=== PATIENT | male | born 1965 | race Caucasian/White ===

== ENCOUNTER 2021-07-14 12:59 | Observation (INO) | payer OTHER, SELFPAY ==
[2021-07-14] VITALS (11 sets, daily range): BP systolic 149–168; BP diastolic 65–86; PULSE 72–85; RESP 14–24; TEMP 36–36.9; O2SAT 96–100; BMI 38.6; BMI 39.5
--- NOTE | 2021-07-14 13:19 | DI.RAD.S_ITS ---
PROCEDURE: XR CHEST 1V INDICATIONS: chest pain TECHNIQUE: One view of the chest was acquired. COMPARISON: None. FINDINGS: Surgical changes and devices: Surgical clips in the left neck. Lungs and pleura: Lungs are clear. No pleural effusions or pneumothorax. Mediastinum: Mediastinal contours appear normal. Heart size is mildly increased. Bones and chest wall: No suspicious bony lesions. Overlying soft tissues appear unremarkable. IMPRESSION: Mild cardiomegaly. Dictated by: Hellen Meng M.D. on 07/14/2021 at 14:12 Approved by: Hellen Meng M.D. on 07/14/2021 at 14:12
[2021-07-14 13:41] LABS: Prothrombin Time 10.6 SECONDS (10.1-12.7)
[2021-07-14 13:44] LABS: Add Manual Diff / Slide Review NO; Basophils Absolute Auto 100 /uL (0-100); Basophils Percent Auto 0.6 % (0-2); Eosinophils Absolute Auto 100 /uL (0-450); Eosinophils Percent Auto 1.7 % (2-4); Hematocrit 33.8 % (41-53); Hemoglobin 11.2 g/dL (13.5-17.5); Lymphocytes Absolute Auto 1600 /uL (1100-4500); Lymphocytes Percent Auto 19.4 % (25-40); Mean Corpuscular HGB Conc 33.1 % (30-36); Mean Corpuscular Hemoglobin 28.9 PG (26-34); Mean Corpuscular Volume 87.1 fL (80-100); Monocytes Absolute Auto 400 /uL (0-900); Monocytes Percent Auto 5.1 % (3-14); Neutrophils Absolute Auto 6000 /uL (1500-7000); Neutrophils Percent Auto 73.2 % (50-75); PTT Partial Thromboplastin Tim 38 SECONDS (26.4-36.2); Platelet Count 273 X10^3/uL (150-400); Red Blood Cell Count 3.88 X10^6/uL (4.5-5.9); Red Cell Distribution Width 14.6 % (11.6-14.8); White Blood Cell Count 8.2 X10^3/uL (4.5-11.0)
[2021-07-14 13:46] LABS: Alanine Aminotransferase 36 IU/L (<50); Albumin 4.5 g/dL (3.5-5.0); Albumin Globulin Ratio 1.2 (1.0-2.8); Alkaline Phosphatase 124 U/L (38-126); Aspartate Aminotransferase 31 IU/L (17-59); BUN Creatinine Ratio 14.3 (6-22); Bilirubin Total 0.3 mg/dL (0.2-1.3); Blood Urea Nitrogen 15 mg/dL (9-20); Calcium 10.2 mg/dL (8.4-10.2); Carbon Dioxide 29 mmol/L (22-32); Chloride 103 mmol/L (98-107); Creatine Kinase 92 U/L (55-170); Estimated Glomerular Filt Rate > 60.0 mL/min (>60); Globulin 3.7 g/dL (1.7-4.1); Glucose 133 mg/dL (70-100); HEMOLYSIS < 15 (0-50); Lipase 171 U/L (23-300); Magnesium 1.7 mg/dL (1.6-2.3); Potassium 5.3 mmol/L (3.4-5.1); Sodium 139 mmol/L (137-145); Total Protein 8.2 g/dL (6.3-8.2)
[2021-07-14 13:57] LABS: Troponin I 0.014 ng/mL (0.01-0.034)
--- NOTE | 2021-07-14 15:13 | ED.DIZZY ---
HPI - Dizziness <Cleveland Perez PA-C - Last Filed: 07/14/21 17:30> General Chief Complaint: Dizziness Stated Complaint: Dizzy, stumbling, got a stint put in heart 07/06 Time Seen by Provider: 07/14/21 13:23 Source: patient Mode of arrival: Wheelchair History of Present Illness HPI Narrative: 56-year-old male presents to the ED complaining of sudden onset of dizziness that started this morning when he woke up out of bed. Patient reports that while getting out of bed walking to the bathroom he had extreme episodes of dizziness denies any loss of consciousness. Patient reports that he had a cardiac stent placed last week. He was placed on blood pressure medication and a blood thinner of unknown. Patient denies any headache nausea diarrhea fever sore throat congestion. Patient admits while driving over here he became car sick momentarily he had 1 episode of vomiting as result. No illicit drug use or recent trauma reported. Related Data Home Medications Medication Instructions Recorded Confirmed aspirin 81 mg tablet,delayed 81 mg PO BEDTIME 07/14/21 07/14/21 release atorvastatin 80 mg tablet 80 mg PO DAILY 07/14/21 07/14/21 carvedilol 3.125 mg tablet 3.125 mg PO BID 07/14/21 07/14/21 citalopram 20 mg tablet (Celexa) 20 mg PO DAILY 07/14/21 07/14/21 cyclobenzaprine 10 mg tablet 10 mg PO BEDTIME 07/14/21 07/14/21 ergocalciferol (vitamin D2) 1,250 1,250 mcg PO WEEKLY 07/14/21 07/14/21 mcg (50,000 unit) capsule losartan 25 mg tablet 12.5 mg PO DAILY 07/14/21 07/14/21 metformin 500 mg tablet 500 mg PO BID 07/14/21 07/14/21 prasugrel 10 mg tablet 10 mg PO DAILY 07/14/21 07/14/21 sildenafil 100 mg tablet 100 mg PO PRN PRN 07/14/21 07/14/21 trazodone 100 mg tablet 100 mg PO BEDTIME 07/14/21 07/14/21 zinc sulfate 50 mg zinc (220 mg) 50 mg PO BEDTIME 07/14/21 07/14/21 capsule Allergies Allergy/AdvReac Type Severity Reaction Status Date / Time No Known Drug Allergies Allergy Verified 07/14/21 13:14 Review of Systems <Cleveland Perez PA-C - Last Filed: 07/14/21 17:30> Review of Systems ROS Unobtainable: All systems reviewed & are unremarkable except as noted in HPI and below Constitutional Constitutional: Denies chills, Denies fatigue, Denies fever(s), Denies frequent falls, Denies lethargy and Denies weakness Eyes Eyes: Denies change in vision, Denies eye discharge, Denies irritation and Denies loss of vision ENT Ears, Nose, Mouth, and Throat: Denies change in voice, Reports vertigo, Reports dizziness, Denies neck pain, Denies sore throat and Denies throat swelling Cardiovascular Cardiovascular: Denies chest pain, Denies irregular heart rhythm, Denies lightheadedness, Denies palpitations, Denies dyspnea, Denies dyspnea on exertion and Denies orthopnea Respiratory Respiratory: Denies cough, Denies dyspnea, Denies dyspnea on exertion and Denies wheezing Gastrointestinal Gastrointestinal: Denies abdominal pain, Denies change in bowel habits, Denies diarrhea, Denies nausea and Denies vomiting Genitourinary Genitourinary: Denies hematuria, Denies flank pain, Denies urinary incontinence and Denies urinary urgency Musculoskeletal Musculoskeletal: Denies back pain, Denies muscle weakness, Denies neck pain, Denies numbness and Denies tingling Integumentary/Breasts Skin/Breast: Denies pruritus, Denies erythema, Denies rash and Denies wounds Neurologic Neurologic: Denies behavioral changes, Denies confusion, Reports vertigo, Reports dizziness, Denies frequent falls, Denies loss of vision, Denies numbness, Denies tingling and Denies weakness Psychiatric Psychiatric: Denies anxiety, Denies behavioral changes, Denies confusion, Denies depression, Denies homicidal ideation and Denies suicidal ideation Endocrine Endocrine: Denies fatigue, Denies flushing and Denies palpitations Hematologic/Lymphatic Hematologic/Lymphatic: Denies easy bruising Allergic/Immunologic Allergic/Immunologic: Denies urticaria, Denies throat swelling and Denies wheezing Patient History <Cleveland Perez PA-C - Last Filed: 07/14/21 17:30> Medical History (Updated 07/15/21 @ 01:43 [facility] Coronary artery disease Essential hypertension History of AL (myocardial infarction) History of placement of stent in anterior descending branch of left coronary artery Hyperlipidemia associated with type 2 diabetes mellitus Morbid obesity Non-insulin dependent type 2 diabetes mellitus Surgical History (Updated 07/15/21 @ 01:43 by MARA Arnett) History of bilateral hip arthroplasty Family History (Updated 07/15/21 @ 01:45 by MARA Arnett) Mother Victim of MVA as unrestrained sulky driver Father due to natural causes Social History household members: none Smoking Status: Former smoker alcohol intake: former Smoking Status: Unknown if ever smoked alcohol intake frequency: holidays/special occasions only Substance Use Type: marijuana Exam <Cleveland Perez PA-C - Last Filed: 07/14/21 17:30> Initial Vital Signs Initial Vital Signs: Vital Signs Temperature 96.8 F L 07/14/21 13:14 Pulse Rate 72 07/14/21 13:14 Respiratory Rate 16 07/14/21 13:14 Blood Pressure 155/86 H 07/14/21 13:14 Pulse Oximetry 99 07/14/21 13:14 Const General: cooperative, healthy appearing, comfortable and well developed Nutritional Appearance: obese Orientation: Orientation [facility] Head: normal to inspection, normocephalic and atraumatic Ears: hearing grossly normal bilaterally and external ears normal Nose: external nose normal and nares normal Face and sinus: normal facial exam and sinuses nontender Mouth: oral mucosae normal Teeth and gingiva: dentition normal and gingiva normal Throat: posterior oropharynx normal Eyes General: appearance normal, both eyes and all related structures Pupils: PERRL EOM: EOM intact bilaterally Direct ophthalmoscopy: normal light reflex Neck Neck: normal visual inspection, full ROM and no meningeal signs Thyroid: thyroid normal Chest Chest: normal inspection of the chest Resp Effort & Inspection: normal respiratory effort and able to speak in complete sentences Auscultation: clear to auscultation bilaterally Percussion: percussion normal Cardio Palpation: normal PMI Rate: regular rate Rhythm: regular rhythm Heart Sounds: S1 normal and S2 normal GI Inspection: normal to inspection and distended Palpation: soft and no hepatosplenomegaly Percussion: normal to percussion Auscultation: normal bowel sounds Skin General: no rashes or lesions noted Neuro General: patient alert, patient awake, patient oriented x3, moves all extremities, no meningeal signs, no focal motor deficits and CN's II-XI intact bilaterally <Lucinda Ford DO - Last Filed: 07/22/21 05:19> Initial Vital Signs Initial Vital Signs: Vital Signs Temperature 96.8 F L 07/14/21 13:14 Pulse Rate 72 07/14/21 13:14 Respiratory Rate 16 07/14/21 13:14 Blood Pressure 155/86 H 07/14/21 13:14 Pulse Oximetry 99 07/14/21 13:14 Course <Cleveland Perez PA-C - Last Filed: 07/14/21 17:30> Orders Ordered: Discontinued Medications Acetaminophen (Acetaminophen 325 Mg Tablet) 650 mg PO Q6HR PRN PRN Reason: Fever/Mild Pain (1-3) Last Admin: 07/15/21 00:55 Dose: 650 mg Documented by: DAISY Aspirin (Aspirin Ec 81 Mg Tablet) 81 mg PO DAILY [facility] Last Admin: 07/15/21 08:40 Dose: 81 mg Documented by: DEB Aspirin (Aspirin Ec 81 Mg Tablet) 81 mg PO BEDTIME [facility] Atorvastatin Calcium (Atorvastatin 20 Mg Tablet) 80 mg PO BEDTIME [facility] Last Admin: 07/14/21 20:29 Dose: 80 mg Documented by: DAISY Atorvastatin Calcium (Atorvastatin 20 Mg Tablet) 80 mg PO DAILY [facility] Carvedilol (Carvedilol 3.125 Mg Tablet) 3.125 mg PO BID [facility] Last Admin: 07/15/21 08:40 Dose: 3.125 mg Documented by: Admin: 07/15/21 01:21 Dose: 3.125 mg Documented by: DAISY Citalopram Hydrobromide (Citalopram 10 Mg Tablet) 20 mg PO DAILY [facility] Last Admin: 07/15/21 08:40 Dose: 20 mg Documented by: DEB Clopidogrel Bisulfate (Clopidogrel 75 Mg Tablet) 75 mg PO DAILY [facility] Last Admin: 07/15/21 08:40 Dose: 75 mg Documented by: DEB Cyclobenzaprine HCl (Cyclobenzaprine 10 Mg Tablet) 10 mg PO BEDTIME [facility] Last Admin: 07/15/21 01:21 Dose: 10 mg Documented by: DAISY Enoxaparin Sodium (Enoxaparin 40 Mg/0.4 Ml Syringe) 40 mg SUBCUT DAILY [facility] Last Admin: 07/15/21 08:40 Dose: 40 mg Documented by: DEB Losartan Potassium (Losartan 25 Mg Tablet) 12.5 mg PO DAILY [facility] Last Admin: 07/15/21 08:40 Dose: 12.5 mg Documented by: DEB Meclizine HCl (Meclizine Hcl 12.5 Mg Tablet) 25 mg PO Q6HR PRN PRN Reason: Vertigo Last Admin: 07/15/21 08:41 Dose: 25 mg Documented by: DEB Metformin HCl (Metformin Hcl 500 Mg Tablet) 500 mg PO BID [facility] Last Admin: 07/15/21 08:40 Dose: 500 mg Documented by: DEB Naloxone HCl (Naloxone 0.4 Mg/Ml Vial) 0.2 mg IV Q2MIN PRN PRN Reason: Opiate Reversal Sodium Chloride (Sodium Chloride 0.9% Flush) 10 ml IV PRN PRN PRN Reason: Flush Sodium Chloride (Sodium Chloride 0.9% Flush) 10 ml IV BID [facility] Last Admin: 07/15/21 08:43 Dose: 10 ml Documented by: Admin: 07/14/21 20:29 Dose: 10 ml Documented by: DAISY Consultations Consultation #1: Contacted tele stroke for consultation. A review of the CTA and the patient chart was done all questions and concerns were answered no intervention was recommended an MRI of the brain was advised to evaluate for posterior infarct. Consultation #2: I spoke with the hospitalist regarding a TIA admission he was agreeable and patient will be admitted an MRI of the brain will be done. Vital Signs Vital signs: Vital Signs - 8 hr 07/14/21 13:14 07/14/21 15:11 07/14/21 15:30 Temperature 96.8 F L Pulse Rate 72 75 73 Respiratory Rate 16 24 14 Blood Pressure 155/86 H 149/66 H Pulse Oximetry 99 100 100 07/14/21 16:00 07/14/21 16:30 07/14/21 17:00 Temperature Pulse Rate 72 73 72 Respiratory Rate 18 22 21 Blood Pressure 149/66 H 149/66 H Pulse Oximetry 99 99 99 <Lucinda Ford, - Last Filed: 07/22/21 05:19> Orders Ordered: Discontinued Medications Acetaminophen (Acetaminophen 325 Mg Tablet) 650 mg PO Q6HR PRN PRN Reason: Fever/Mild Pain (1-3) Last Admin: 07/15/21 00:55 Dose: 650 mg Documented by: DAISY Aspirin (Aspirin Ec 81 Mg Tablet) 81 mg PO DAILY [facility] Last Admin: 07/15/21 08:40 Dose: 81 mg Documented by: DEB Aspirin (Aspirin Ec 81 Mg Tablet) 81 mg PO BEDTIME [facility] Atorvastatin Calcium (Atorvastatin 20 Mg Tablet) 80 mg PO BEDTIME [facility] Last Admin: 07/14/21 20:29 Dose: 80 mg Documented by: DAISY Atorvastatin Calcium (Atorvastatin 20 Mg Tablet) 80 mg PO DAILY [facility] Carvedilol (Carvedilol 3.125 Mg Tablet) 3.125 mg PO BID [facility] Last Admin: 07/15/21 08:40 Dose: 3.125 mg Documented by: Admin: 07/15/21 01:21 Dose: 3.125 mg Documented by: DAISY Citalopram Hydrobromide (Citalopram 10 Mg Tablet) 20 mg PO DAILY [facility] Last Admin: 07/15/21 08:40 Dose: 20 mg Documented by: DEB Clopidogrel Bisulfate (Clopidogrel 75 Mg Tablet) 75 mg PO DAILY [facility] Last Admin: 07/15/21 08:40 Dose: 75 mg Documented by: DEB Cyclobenzaprine HCl (Cyclobenzaprine 10 Mg Tablet) 10 mg PO BEDTIME [facility] Last Admin: 07/15/21 01:21 Dose: 10 mg Documented by: DAISY Enoxaparin Sodium (Enoxaparin 40 Mg/0.4 Ml Syringe) 40 mg SUBCUT DAILY [facility] Last Admin: 07/15/21 08:40 Dose: 40 mg Documented by: DEB Losartan Potassium (Losartan 25 Mg Tablet) 12.5 mg PO DAILY [facility] Last Admin: 07/15/21 08:40 Dose: 12.5 mg Documented by: DEB Meclizine HCl (Meclizine Hcl 12.5 Mg Tablet) 25 mg PO Q6HR PRN PRN Reason: Vertigo Last Admin: 07/15/21 08:41 Dose: 25 mg Documented by: DEB Metformin HCl (Metformin Hcl 500 Mg Tablet) 500 mg PO BID [facility] Last Admin: 07/15/21 08:40 Dose: 500 mg Documented by: DEB Naloxone HCl (Naloxone 0.4 Mg/Ml Vial) 0.2 mg IV Q2MIN PRN PRN Reason: Opiate Reversal Sodium Chloride (Sodium Chloride 0.9% Flush) 10 ml IV PRN PRN PRN Reason: Flush Sodium Chloride (Sodium Chloride 0.9% Flush) 10 ml IV BID [facility] Last Admin: 07/15/21 08:43 Dose: 10 ml Documented by: Admin: 07/14/21 20:29 Dose: 10 ml Documented by: DAISY Vital Signs Vital signs: Vital Signs - 8 hr 07/14/21 13:14 07/14/21 15:11 07/14/21 15:30 Temperature 96.8 F L Pulse Rate 72 75 73 Respiratory Rate 16 24 14 Blood Pressure 155/86 H 149/66 H Pulse Oximetry 99 100 100 07/14/21 16:00 07/14/21 16:30 07/14/21 17:00 Temperature Pulse Rate 72 73 72 Respiratory Rate 18 22 21 Blood Pressure 149/66 H 149/66 H Pulse Oximetry 99 99 99 MDM - Dizziness <Cleveland Perez PA-C - Last Filed: 07/14/21 17:30> Differential Diagnosis Differential diagnosis: Likely benign paroxysmal positional vertigo and acute vestibular neuronitis Lab Data Result diagrams: 07/14/21 13:25 07/14/21 13:25 Labs: Lab Results 07/14/21 07/14/21 07/14/21 Range/Units 13:25 13:25 13:25 WBC 8.2 (4.5-11.0) X10^3/uL RBC 3.88 L (4.5-5.9) X10^6/uL Hgb 11.2 L (13.5-17.5) g/dL Hct 33.8 L (41-53) % MCV 87.1 (80-100) fL MCH 28.9 (26-34) PG MCHC 33.1 (30-36) % RDW 14.6 (11.6-14.8) % Plt Count 273 (150-400) X10^3/uL Neut % (Auto) 73.2 (50-75) % Lymph % (Auto) 19.4 L (25-40) % Faulkner % (Auto) 5.1 (3-14) % Eos % (Auto) 1.7 L (2-4) % Baso % (Auto) 0.6 (0-2) % Neut # (Auto) 6000 (0908-2458) /uL Lymph # (Auto) 1600 (3155-4910) /uL Faulkner # (Auto) 400 (0-900) /uL Eos # (Auto) 100 (0-450) /uL Baso # (Auto) 100 (0-100) /uL PT 10.6 (10.1-12.7) SECONDS INR 1.0 (0.9-1.3) APTT 38 H (26.4-36.2) SECONDS Sodium 139 (137-145) mmol/L Potassium 5.3 H (3.4-5.1) mmol/L Chloride 103 (98-107) mmol/L Carbon Dioxide 29 (22-32) mmol/L BUN 15 (9-20) mg/dL Creatinine 1.05 (0.66-1.25) mg/dL Estimated GFR > 60.0 (>60) mL/min BUN/Creatinine Ratio 14.3 (6-22) Glucose 133 H (70-100) mg/dL Hemoglobin A1c (4.0-6.0) % Calcium 10.2 (8.4-10.2) mg/dL Magnesium 1.7 (1.6-2.3) mg/dL Total Bilirubin 0.3 (0.2-1.3) mg/dL AST 31 (17-59) IU/L ALT 36 (<50) IU/L Alkaline Phosphatase 124 (38-126) U/L Total Creatine Kinase 92 (55-170) U/L CK-MB (CK-2) TNP CK-MB (CK-2) Rel Index TNP Troponin I 0.014 (0.01-0.034) ng/mL NT-Pro-B Natriuret Pep (<125) pg/mL Total Protein 8.2 (6.3-8.2) g/dL Albumin 4.5 (3.5-5.0) g/dL Globulin 3.7 (1.7-4.1) g/dL Albumin/Globulin Ratio 1.2 (1.0-2.8) Triglycerides (35-150) mg/dL Cholesterol (140-199) mg/dL LDL Cholesterol, Calc (<100) mg/dL HDL Cholesterol (40-60) mg/dL Lipase 171 (23-300) U/L 07/14/21 07/14/21 07/14/21 Range/Units 13:25 13:25 13:25 WBC (4.5-11.0) X10^3/uL RBC (4.5-5.9) X10^6/uL Hgb (13.5-17.5) g/dL Hct (41-53) % MCV (80-100) fL MCH (26-34) PG MCHC (30-36) % RDW (11.6-14.8) % Plt Count (150-400) X10^3/uL Neut % (Auto) (50-75) % Lymph % (Auto) (25-40) % Faulkner % (Auto) (3-14) % Eos % (Auto) (2-4) % Baso % (Auto) (0-2) % Neut # (Auto) (5835-6629) /uL Lymph # (Auto) (7446-9450) /uL Faulkner # (Auto) (0-900) /uL Eos # (Auto) (0-450) /uL Baso # (Auto) (0-100) /uL PT (10.1-12.7) SECONDS INR (0.9-1.3) APTT (26.4-36.2) SECONDS Sodium (137-145) mmol/L Potassium (3.4-5.1) mmol/L Chloride (98-107) mmol/L Carbon Dioxide (22-32) mmol/L BUN (9-20) mg/dL Creatinine (0.66-1.25) mg/dL Estimated GFR (>60) mL/min BUN/Creatinine Ratio (6-22) Glucose (70-100) mg/dL Hemoglobin A1c 5.7 (4.0-6.0) % Calcium (8.4-10.2) mg/dL Magnesium (1.6-2.3) mg/dL Total Bilirubin (0.2-1.3) mg/dL AST (17-59) IU/L ALT (<50) IU/L Alkaline Phosphatase (38-126) U/L Total Creatine Kinase (55-170) U/L CK-MB (CK-2) CK-MB (CK-2) Rel Index Troponin I (0.01-0.034) ng/mL NT-Pro-B Natriuret Pep 2670 H (<125) pg/mL Total Protein (6.3-8.2) g/dL Albumin (3.5-5.0) g/dL Globulin (1.7-4.1) g/dL Albumin/Globulin Ratio (1.0-2.8) Triglycerides 166 H (35-150) mg/dL Cholesterol 180 (140-199) mg/dL LDL Cholesterol, Calc 92 (<100) mg/dL HDL Cholesterol 55 (40-60) mg/dL Lipase (23-300) U/L Imaging Data CTA - brain/neck: Radiologist's Impression: PROCEDURE:? CT ANGIO HEAD AND NECK ? INDICATIONS:? DIZZINESS ? TECHNIQUE:? ? Helical axial CT of the head and neck was obtained after intravenous contrast administration utilizing an angiographic protocol, and reformatted in multiple planes.? CT dose reduction was obtained with automatic exposure control. ? COMPARISON:? [facility], CT, CT HEAD/BRAIN WO CON, 07/14/2021, 15:31. ? FINDINGS: ? Cerebral CT Angiogram: ? Internal carotid arteries:? Densely calcified distal cavernous ICA results in moderate to severe bilateral stenosis without aneurysm or occlusion. Anterior cerebral arteries:? Unremarkable.? No significant stenosis.? No occlusion.? No aneurysm. Middle cerebral arteries:? Unremarkable.? No significant stenosis.? No occlusion.? No aneurysm. Posterior cerebral arteries:? 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 The P2 segment is supplied by a widely patent posterior communicating artery. Remainder of the distal vasculature unremarkable.? Right INTERNAL AFFAIRS INVESTIGATOR unremarkable. Basilar artery:? Unremarkable.? No significant stenosis.? No occlusion.? No aneurysm. Vertebral arteries:? Left vertebral artery dominance.? No aneurysm. Dural venous sinuses:? Unremarkable given phase of enhancement. Other:? Arterial phase brain parenchyma is unremarkable. ? Neck CT Angiogram: ? Internal carotid arteries:? Calcified and noncalcified atherosclerotic plaque in both proximal internal carotid arteries results in 60% stenosis on the right and proximal internal carotid artery and no hemodynamically significant stenosis on the left utilizing NASCET criteria.? There is evidence of prior left carotid endarterectomy. Common carotid arteries:? Unremarkable.? No significant stenosis.? No dissection or occlusion. External carotid arteries:? Unremarkable.? No occlusion. Vertebral arteries:? Left vertebral artery dominance.? No aneurysm or occlusion. Other:? Multilevel degenerative disc disease and arthropathy in the cervical spine results in moderate central and right foraminal stenosis at C5-6 ? Aortic Arch and Mediastinum:? Partially visualized aortic arch unremarkable without evidence of aneurysm. Origins of the great vessels unremarkable. ? IMPRESSION: ? 1. Dense atherosclerotic plaque in the right proximal internal carotid artery results in at least 60% stenosis utilizing NASCET criteria.? No stenosis in the left proximal ICA status post endarterectomy. ? 2. Atherosclerotic calcification in the cavernous segments of both distal ICA results in moderate to severe focal stenosis. ? 3.? Multilevel degenerative disc disease and arthropathy in the cervical spine results in moderate central and right foraminal stenosis at C5-6. ? ? Any quantitative measurements of stenosis were performed using NASCET criteria.? Approved by: Luis Moya M.D. on 07/14/2021 at 15:40? CT scan - head: Radiologist's Impression: PROCEDURE:? CT HEAD/BRAIN WO CON ? INDICATIONS:? dizziness ? TECHNIQUE:? Noncontrast 4.5 mm thick angled axial sections acquired from the foramen magnum to the vertex, with coronal and sagittal reformats.? For radiation dose reduction, the following was used:? automated exposure control, adjustment of mA and/or kV according to patient size.? ? COMPARISON:? None. ? FINDINGS:? Image quality:? Excellent.? ? CSF spaces:? Basal cisterns are patent.? No extra-axial fluid collections.? Ventricles are normal in size and shape.? ? Brain:? No midline shift.? No intracranial masses or hemorrhage.? Toney-white matter interface is normal.? ? Skull and face:? Calvarium and visualized facial bones are intact, without suspicious lesions.? ? Sinuses:? Visualized sinuses and mastoids are clear.? ? IMPRESSION:? No acute intracranial abnormality. ? ? Dictated by: Estuardo Benitez M.D. on 07/14/2021 at 15:55 ? ? Approved by: Estuardo Benitez M.D. on 07/14/2021 at 15:56?? Chest x-ray: Radiologist's Impression: PROCEDURE:? XR CHEST 1V ? INDICATIONS:? chest pain ? TECHNIQUE:? One view of the chest was acquired.? ? COMPARISON:? None. ? FINDINGS:? ? Surgical changes and devices:? Surgical clips in the left neck.? ? Lungs and pleura:? Lungs are clear.? No pleural effusions or pneumothorax.? ? Mediastinum:? Mediastinal contours appear normal.? Heart size is mildly increased.? ? Bones and chest wall:? No suspicious bony lesions.? Overlying soft tissues appear unremarkable.? ? IMPRESSION:? Mild cardiomegaly. ? ? Dictated by: Hellen Meng M.D. on 07/14/2021 at 14:12 ? ? Approved by: Hellen Meng M.D. on 07/14/2021 at 14:12?? MDM Narrative Medical decision making narrative: Patient was evaluated today for vertigo. CTA shows moderate to severe stenosis tele stroke was contacted and advised an MRI of the brain and no acute intervention required at this time patient will be admitted to the hospital for further treatment and monitoring. Patient was also found to have an elevated proBNP which will need some diuresis and telemetry. <Lucinda Ford, DO - Last Filed: 07/22/21 05:19> Lab Data Labs: Lab Results 07/14/21 07/14/21 07/14/21 Range/Units 13:25 13:25 13:25 WBC 8.2 (4.5-11.0) X10^3/uL RBC 3.88 L (4.5-5.9) X10^6/uL Hgb 11.2 L (13.5-17.5) g/dL Hct 33.8 L (41-53) % MCV 87.1 (80-100) fL MCH 28.9 (26-34) PG MCHC 33.1 (30-36) % RDW 14.6 (11.6-14.8) % Plt Count 273 (150-400) X10^3/uL Neut % (Auto) 73.2 (50-75) % Lymph % (Auto) 19.4 L (25-40) % Faulkner % (Auto) 5.1 (3-14) % Eos % (Auto) 1.7 L (2-4) % Baso % (Auto) 0.6 (0-2) % Neut # (Auto) 6000 (1982-2759) /uL Lymph # (Auto) 1600 (7992-3315) /uL Faulkner # (Auto) 400 (0-900) /uL Eos # (Auto) 100 (0-450) /uL Baso # (Auto) 100 (0-100) /uL PT 10.6 (10.1-12.7) SECONDS INR 1.0 (0.9-1.3) APTT 38 H (26.4-36.2) SECONDS Sodium 139 (137-145) mmol/L Potassium 5.3 H (3.4-5.1) mmol/L Chloride 103 (98-107) mmol/L Carbon Dioxide 29 (22-32) mmol/L BUN 15 (9-20) mg/dL Creatinine 1.05 (0.66-1.25) mg/dL Estimated GFR > 60.0 (>60) mL/min BUN/Creatinine Ratio 14.3 (6-22) Glucose 133 H (70-100) mg/dL Hemoglobin A1c (4.0-6.0) % Calcium 10.2 (8.4-10.2) mg/dL Magnesium 1.7 (1.6-2.3) mg/dL Total Bilirubin 0.3 (0.2-1.3) mg/dL AST 31 (17-59) IU/L ALT 36 (<50) IU/L Alkaline Phosphatase 124 (38-126) U/L Total Creatine Kinase 92 (55-170) U/L CK-MB (CK-2) TNP CK-MB (CK-2) Rel Index TNP Troponin I 0.014 (0.01-0.034) ng/mL NT-Pro-B Natriuret Pep (<125) pg/mL Total Protein 8.2 (6.3-8.2) g/dL Albumin 4.5 (3.5-5.0) g/dL Globulin 3.7 (1.7-4.1) g/dL Albumin/Globulin Ratio 1.2 (1.0-2.8) Triglycerides (35-150) mg/dL Cholesterol (140-199) mg/dL LDL Cholesterol, Calc (<100) mg/dL HDL Cholesterol (40-60) mg/dL Lipase 171 (23-300) U/L 07/14/21 07/14/21 07/14/21 Range/Units 13:25 13:25 13:25 WBC (4.5-11.0) X10^3/uL RBC (4.5-5.9) X10^6/uL Hgb (13.5-17.5) g/dL Hct (41-53) % MCV (80-100) fL MCH (26-34) PG MCHC (30-36) % RDW (11.6-14.8) % Plt Count (150-400) X10^3/uL Neut % (Auto) (50-75) % Lymph % (Auto) (25-40) % Faulkner % (Auto) (3-14) % Eos % (Auto) (2-4) % Baso % (Auto) (0-2) % Neut # (Auto) (4882-0426) /uL Lymph # (Auto) (9789-2455) /uL Faulkner # (Auto) (0-900) /uL Eos # (Auto) (0-450) /uL Baso # (Auto) (0-100) /uL PT (10.1-12.7) SECONDS INR (0.9-1.3) APTT (26.4-36.2) SECONDS Sodium (137-145) mmol/L Potassium (3.4-5.1) mmol/L Chloride (98-107) mmol/L Carbon Dioxide (22-32) mmol/L BUN (9-20) mg/dL Creatinine (0.66-1.25) mg/dL Estimated GFR (>60) mL/min BUN/Creatinine Ratio (6-22) Glucose (70-100) mg/dL Hemoglobin A1c 5.7 (4.0-6.0) % Calcium (8.4-10.2) mg/dL Magnesium (1.6-2.3) mg/dL Total Bilirubin (0.2-1.3) mg/dL AST (17-59) IU/L ALT (<50) IU/L Alkaline Phosphatase (38-126) U/L Total Creatine Kinase (55-170) U/L CK-MB (CK-2) CK-MB (CK-2) Rel Index Troponin I (0.01-0.034) ng/mL NT-Pro-B Natriuret Pep 2670 H (<125) pg/mL Total Protein (6.3-8.2) g/dL Albumin (3.5-5.0) g/dL Globulin (1.7-4.1) g/dL Albumin/Globulin Ratio (1.0-2.8) Triglycerides 166 H (35-150) mg/dL Cholesterol 180 (140-199) mg/dL LDL Cholesterol, Calc 92 (<100) mg/dL HDL Cholesterol 55 (40-60) mg/dL Lipase (23-300) U/L Discharge Plan Departure Patient Disposition: Admitted As Inpatient Clinical Impression: Vertigo, Congestive heart disease Admit Date/Time: 07/14/21 17:31 Admit Provider: Levar Saab <Lucinda Ford DO - Last Filed: 07/22/21 05:19> Cosign ED Attending Cosignature Attestation: I was immediately available in the department for consultation. Documentation has been reviewed. Case was discussed with myself. Patient does not have clear focal neurologic defects beyond vertigo but has had recent cardiac stent placed. Discussed stroke workup including head and CT angio which does show narrowing. Discussed patient case should be discussed with telestroke who gave recommendations for MRI and observation for stroke workup.
--- NOTE | 2021-07-14 15:22 | DI.CT.S_ITS ---
PROCEDURE: CT HEAD/BRAIN WO CON INDICATIONS: dizziness TECHNIQUE: Noncontrast 4.5 mm thick angled axial sections acquired from the foramen magnum to the vertex, with coronal and sagittal reformats. For radiation dose reduction, the following was used: automated exposure control, adjustment of mA and/or kV according to patient size. COMPARISON: None. FINDINGS: Image quality: Excellent. CSF spaces: Basal cisterns are patent. No extra-axial fluid collections. Ventricles are normal in size and shape. Brain: No midline shift. No intracranial masses or hemorrhage. Toney-white matter interface is normal. Skull and face: Calvarium and visualized facial bones are intact, without suspicious lesions. Sinuses: Visualized sinuses and mastoids are clear. IMPRESSION: No acute intracranial abnormality. Dictated by: Estuardo Benitez M.D. on 07/14/2021 at 15:55 Approved by: Estuardo Benitez M.D. on 07/14/2021 at 15:56
--- NOTE | 2021-07-14 15:25 | DI.CT.S_ITS ---
PROCEDURE: CT ANGIO HEAD AND NECK INDICATIONS: DIZZINESS TECHNIQUE: Helical axial CT of the head and neck was obtained after intravenous contrast administration utilizing an angiographic protocol, and reformatted in multiple planes. CT dose reduction was obtained with automatic exposure control. COMPARISON: [facility], CT, CT HEAD/BRAIN WO CON, 07/14/2021, 15:31. FINDINGS: Cerebral CT Angiogram: Internal carotid arteries: Densely calcified distal cavernous ICA results in moderate to severe bilateral stenosis without aneurysm or occlusion. Anterior cerebral arteries: Unremarkable. No significant stenosis. No occlusion. No aneurysm. Middle cerebral arteries: Unremarkable. No significant stenosis. No occlusion. No aneurysm. Posterior cerebral arteries: Hypoplasia/aplasia of the left P1 SENIOR INTERACTIVE DEVELOPER noted. The P2 segment is supplied by a widely patent posterior communicating artery. Remainder of the distal vasculature unremarkable. Right SENIOR INTERACTIVE DEVELOPER unremarkable. Basilar artery: Unremarkable. No significant stenosis. No occlusion. No aneurysm. Vertebral arteries: Left vertebral artery dominance. No aneurysm. Dural venous sinuses: Unremarkable given phase of enhancement. Other: Arterial phase brain parenchyma is unremarkable. Neck CT Angiogram: Internal carotid arteries: Calcified and noncalcified atherosclerotic plaque in both proximal internal carotid arteries results in 60% stenosis on the right and proximal internal carotid artery and no hemodynamically significant stenosis on the left utilizing NASCET criteria. There is evidence of prior left carotid endarterectomy. Common carotid arteries: Unremarkable. No significant stenosis. No dissection or occlusion. External carotid arteries: Unremarkable. No occlusion. Vertebral arteries: Left vertebral artery dominance. No aneurysm or occlusion. Other: Multilevel degenerative disc disease and arthropathy in the cervical spine results in moderate central and right foraminal stenosis at C5-6 Aortic Arch and Mediastinum: Partially visualized aortic arch unremarkable without evidence of aneurysm. Origins of the great vessels unremarkable. IMPRESSION: 1. Dense atherosclerotic plaque in the right proximal internal carotid artery results in at least 60% stenosis utilizing NASCET criteria. No stenosis in the left proximal ICA status post endarterectomy. 2. Atherosclerotic calcification in the cavernous segments of both distal ICA results in moderate to severe focal stenosis. 3. Multilevel degenerative disc disease and arthropathy in the cervical spine results in moderate central and right foraminal stenosis at C5-6. Any quantitative measurements of stenosis were performed using NASCET criteria. Approved by: Luis Moya M.D. on 07/14/2021 at 15:40
[2021-07-14 15:41] LABS: NT-proBNP (BNP-Adult 18+) 2670 pg/mL (<125)
--- NOTE | 2021-07-14 18:02 | DI.MRI.S_ITS ---
PROCEDURE: MR HEAD/BRAIN WO CON INDICATIONS: Dizziness TECHNIQUE: Noncontrast axial T1 spin echo, axial T2 fast spin echo, sagittal and axial FLAIR, coronal T2 fast spin echo, axial gradient echo, axial diffusion and ADC through the brain. COMPARISON: None. FINDINGS: Cerebrum, Cerebellum and Brainstem: Mild cerebral and cerebellar volume loss as well as mild multifocal hyperintensities in the deep and subcortical white matter present. The diffusion sequence is normal without evidence of acute infarct. No intracranial hemorrhage, mass lesion or midline shift. Basal cisterns and foramen magnum contain appropriate anatomy and vascular flow voids. No evidence of dural or leptomeningeal thickening. Ventricles: Appropriate in size and position. No hydrocephalus. Skull Base: The bony sella, pituitary gland and infundibulum unremarkable. Clivus and craniovertebral relationships are appropriate. Visualized portions of the seventh and eighth cranial nerve complexes and internal auditory canals are within normal limits. Scalp and Calvarium: The scalp is unremarkable. Underlying calvarium has an appropriate marrow signal. Paranasal Sinuses: Visualized portions of the paranasal sinuses are clear. Mastoids: Unremarkable as visualized. No mastoid effusion present. Orbits: The orbits, globes and ocular muscles are unremarkable. IMPRESSION: Mild atrophy and multifocal white matter chronic ischemic change without acute hemorrhage, infarct or mass lesion. Approved by: Luis Moya M.D. on 07/14/2021 at 17:57
[2021-07-14 18:33] LABS: COVID19 -Nasal RAPID Negative (Negative)
[2021-07-14 19:32] LABS: Hemoglobin A1C% w Est Avg Glu 5.7 % (4.0-6.0)
[2021-07-14 19:39] LABS: Cholesterol 180 mg/dL (140-199); HDL Cholesterol 55 mg/dL (40-60); LDL Cholesterol Calculated 92 mg/dL (<100); Triglycerides 166 mg/dL (35-150)
[2021-07-14] MEDS: SODIUM CHLORIDE 0.9% FLUSH 10 ML IV (20:29)
[2021-07-14] MEDS: ATORVASTATIN 20 MG TABLET 80 MG PO (20:29)
--- NOTE | 2021-07-14 21:38 | PC.NURSE ---
Patient is alert and oriented; current NIH = 0 Breath sounds CTA with RA sat of 100%. Placed on telemetry per verbal order of Vitor ARRIETA. Denies nausea. BT present and abdomen is soft. Denies dysuria, frequency or urgency with urination. Is able to turn himself in bed. Up with SBA related to history of dizziness prior to coming to ER but currently denies any dizziness. Denies pain. Bilateral calf SCD's applied. Fall risk score is moderate and bed alarm is activated; patient verbalizes agreement to call for assistance if needing to get out of bed.
[2021-07-15] VITALS (8 sets, daily range): BP systolic 127–157; BP diastolic 60–71; PULSE 67–73; RESP 14–18; TEMP 36.8–37.5; O2SAT 96–97
--- NOTE | 2021-07-15 00:41 | P.HP_ITS ---
History of Present Illness History of Present Illness Date Patient Seen: 07/14/21 Time Patient Seen: 19:13 Chief complaint: Dizzy, stumbling, got a stint put in heart 07/06 Narrative: Narayan Shrestha is a 56-year-old male with a history of hypertension, hyperlipidemia, coronary artery disease, history of recent heart attack with stent placement, zzk-uskbxyo-ihkoylara type 2 diabetes who presented to the ED complaining of sudden onset of dizziness that started this morning when he woke up out of bed.? Patient reports that while getting out of bed walking to the bathroom he had extreme episodes of dizziness denies any loss of consciousness.? Patient reports that he had a cardiac stent placed last week.? He was placed on blood pressure medication and a blood thinner of unknown.? Patient denies any Chest pain, SOB, headache, changes in vision, numbness, tingling, weakness, peripheral edema, abdominal pain, diaphoresis, nausea, vomiting, diarrhea, fever, body aches, sore throat, congestion, any recent illness injury or trauma otherwise stated. Patient admits while driving over here he became car sick momentarily he had 2 episode of vomiting as result.? Patient states he smoked for 35 years but quit some time ago, does not drink alcohol regularly, does smoke marijuana regularly. At the time of admit interview patient is resting in bed denies any symptoms at this time including dizziness but notes that if he sat up on the side of the bed his dizziness would reoccur. Patient's vitals upon admit temp 96.8?, BP 149/66, HR 72, R 21, O2 saturation 99% on room air. Patient has a HGB 11.2, HCT 33.8, potassium 5.3, glucose 133, all other chemistry and liver panels are within normal limits. Patient's troponin is negative, BNP 2670, patient's brain MRI demonstrated no acute intracranial process, hemorrhage, infarction, or mass. Patient's CTA of head neck demonstrated right coronary artery 60% stenosis, patient's head CT demonstrated no intracranial acute processes. Patient's chest x-ray demonstrated mild cardiomyopathy. Patient's EKG demonstrated normal sinus rhythm with a rate of 67, and T-wave abnormality, no comparison available. [place] neuro stroke was consulted regarding patient and recommended admit for observation and risk assessment evaluation. Patient admitted for TIA versus CVA rule out. 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 Father due to natural causes Social History: household members none - retired Prior Living Arrangements Mobile home Safety & Behavioral: Feels Safe in Current Yes Environment Been Physically Hurt or No Threatened By a Person Suicidal Ideation Description None Suicide Plan Description No Plan Tobacco & Substance use: Tobacco type cigarettes x 35 yrs quit 2016 Smoking Status Former smoker Smoking packs per day 1 alcohol intake former alcohol intake frequency holiday/special occasion Substance Use Type marijuana smokes regularly Meds Home Medications and Allergies Home Medications Medication Instructions Recorded Confirmed Type aspirin 81 mg tablet,delayed 81 mg PO BEDTIME 07/14/21 07/14/21 History release atorvastatin 80 mg tablet 80 mg PO DAILY 07/14/21 07/14/21 History carvedilol 3.125 mg tablet 3.125 mg PO BID 07/14/21 07/14/21 History citalopram 20 mg tablet (Celexa) 20 mg PO DAILY 07/14/21 07/14/21 History cyclobenzaprine 10 mg tablet 10 mg PO BEDTIME 07/14/21 07/14/21 History ergocalciferol (vitamin D2) 1,250 1,250 mcg PO WEEKLY 07/14/21 07/14/21 History mcg (50,000 unit) capsule losartan 25 mg tablet 12.5 mg PO DAILY 07/14/21 07/14/21 History metformin 500 mg tablet 500 mg PO BID 07/14/21 07/14/21 History prasugrel 10 mg tablet 10 mg PO DAILY 07/14/21 07/14/21 History sildenafil 100 mg tablet 100 mg PO PRN PRN 07/14/21 07/14/21 History trazodone 100 mg tablet 100 mg PO BEDTIME 02/08/22 02/08/22 History zinc sulfate 50 mg zinc (220 mg) 50 mg PO BEDTIME 07/14/21 07/14/21 History capsule Allergies Allergy/AdvReac Type Severity Reaction Status Date / Time No Known Drug Allergies Allergy Verified 07/14/21 13:14 Review of Systems Review of Systems Narrative: All 12 point systems reviewed with the patient and are negative except otherwise documented. Exam Vital Signs (past 8 hours): - 07/14/21 17:00 07/14/21 19:08 07/14/21 19:59 Temperature 98.5 F Pulse Rate 72 72 72 Pulse Rate [Orthostatic Lying] Pulse Rate [Orthostatic Sitting] Pulse Rate [Orthostatic Standing] Respiratory Rate 21 18 18 Blood Pressure 149/66 H 161/76 H Blood Pressure [Orthostatic Lying] Blood Pressure [Orthostatic Sitting] Blood Pressure [Orthostatic Standing] Pulse Oximetry 99 100 100 07/14/21 20:40 07/14/21 23:24 07/14/21 23:25 Temperature 97.7 F Pulse Rate 75 Pulse Rate [Orthostatic Lying] 78 Pulse Rate [Orthostatic Sitting] 85 Pulse Rate [Orthostatic Standing] 84 Respiratory Rate 14 Blood Pressure 158/73 H Blood Pressure [Orthostatic Lying] 168/66 H Blood Pressure [Orthostatic Sitting] 166/65 H Blood Pressure [Orthostatic Standing] 160/65 H Pulse Oximetry 96 96 Oxygen Delivery Method Room Air Oxygen Flow Rate 0 Narrative Exam Narrative: General: Patient is a well-developed, well-nourished male in no distress at this time. HEENT: Normocephalic, atraumatic, extraocular muscles intact, oral pharynx is clear and mucous membranes are moist. Neck is supple and symmetric, trachea is midline, no adenopathy, no thyroid enlargement, nontender, no masses palpated. Negative for JVD Chest: Normal AP diameter and contour without kyphoscoliosis, no nasal flaring, retractions, or tachypneic labored Lungs: Auscultation of all lung santos are clear without adventitious sounds, wheezes, rhonchi, or rales. Cardio: S1 & S2 with regular rate and rhythm without murmur, rubs, or gallops, no carotid bruit, no cardiac pulsations present. Abdomen: Soft nontender, negative for organomegaly, or masses. Bowel sounds are present in all 4 quadrants without guarding or rebound, no CVA tenderness. Musculoskeletal: Muscle strength and tone are equal within normal limits, no deformity, crepitus, effusions, cyanosis, clubbing or edema present. Full range of motion intact radial and pedal pulses are normal. Skin: Warm dry and intact without rashes, ulcerations or petechiae. Neuro: Alert and orientated x3, strength is +5/5 in all extremities, sensation to touch intact, no gross deficits noted of cranial nerves. Psych: Patient has a well-kept appearance, appropriate affect, mental status attitude thought context and judgment are appropriate for age. Objective Labs Result Diagrams: 07/14/21 13:25 07/14/21 13:25 Labs: Laboratory Results - last 24 hr 07/14/21 07/14/21 07/14/21 13:25 13:25 13:25 WBC 8.2 RBC 3.88 L Hgb 11.2 L Hct 33.8 L MCV 87.1 MCH 28.9 MCHC 33.1 RDW 14.6 Plt Count 273 Neut % (Auto) 73.2 Lymph % (Auto) 19.4 L [place] % (Auto) 5.1 Eos % (Auto) 1.7 L Baso % (Auto) 0.6 Neut # (Auto) 6000 Lymph # (Auto) 1600 [place] # (Auto) 400 Eos # (Auto) 100 Baso # (Auto) 100 PT 10.6 INR 1.0 APTT 38 H Sodium 139 Potassium 5.3 H Chloride 103 Carbon Dioxide 29 BUN 15 Creatinine 1.05 Estimated GFR > 60.0 BUN/Creatinine Ratio 14.3 Glucose 133 H Hemoglobin A1c Calcium 10.2 Magnesium 1.7 Total Bilirubin 0.3 AST 31 ALT 36 Alkaline Phosphatase 124 Total Creatine Kinase 92 CK-MB (CK-2) TNP CK-MB (CK-2) Rel Index TNP Troponin I 0.014 NT-Pro-B Natriuret Pep Total Protein 8.2 Albumin 4.5 Globulin 3.7 Albumin/Globulin Ratio 1.2 Triglycerides Cholesterol LDL Cholesterol, Calc HDL Cholesterol Lipase 171 SARS-CoV-2 (PCR) 07/14/21 07/14/21 07/14/21 13:25 13:25 13:25 WBC RBC Hgb Hct MCV MCH MCHC RDW Plt Count Neut % (Auto) Lymph % (Auto) [place] % (Auto) Eos % (Auto) Baso % (Auto) Neut # (Auto) Lymph # (Auto) [place] # (Auto) Eos # (Auto) Baso # (Auto) PT INR APTT Sodium Potassium Chloride Carbon Dioxide BUN Creatinine Estimated GFR BUN/Creatinine Ratio Glucose Hemoglobin A1c 5.7 Calcium Magnesium Total Bilirubin AST ALT Alkaline Phosphatase Total Creatine Kinase CK-MB (CK-2) CK-MB (CK-2) Rel Index Troponin I NT-Pro-B Natriuret Pep 2670 H Total Protein Albumin Globulin Albumin/Globulin Ratio Triglycerides 166 H Cholesterol 180 LDL Cholesterol, Calc 92 HDL Cholesterol 55 Lipase SARS-CoV-2 (PCR) 07/14/21 17:46 WBC RBC Hgb Hct MCV MCH MCHC RDW Plt Count Neut % (Auto) Lymph % (Auto) [place] % (Auto) Eos % (Auto) Baso % (Auto) Neut # (Auto) Lymph # (Auto) [place] # (Auto) Eos # (Auto) Baso # (Auto) PT INR APTT Sodium Potassium Chloride Carbon Dioxide BUN Creatinine Estimated GFR BUN/Creatinine Ratio Glucose Hemoglobin A1c Calcium Magnesium Total Bilirubin AST ALT Alkaline Phosphatase Total Creatine Kinase CK-MB (CK-2) CK-MB (CK-2) Rel Index Troponin I NT-Pro-B Natriuret Pep Total Protein Albumin Globulin Albumin/Globulin Ratio Triglycerides Cholesterol LDL Cholesterol, Calc HDL Cholesterol Lipase SARS-CoV-2 (PCR) Negative Assessment & Plan Assessment & Plan narrative: Narayan Shrestha is a 56-year-old male with a history of hypertension, hyperlipidemia, morbidly obesity, coronary artery disease, history of recent heart attack with stent placement, qlb-soleupn-emciqsonh type 2 diabetes who presented to the ED complaining of sudden onset of dizziness that started this morning when he woke up out of bed, denies any loss of consciousness.? Patient reports that he had a cardiac stent placed last week following a heart attack. Patient's vertigo appears to have since resolved have with this to him getting up to the restroom multiple times without issue during the night following admit. Patient's BNP was also elevated at 2670 patient denies history of CHF will be evaluated on echo. Admitted for Vertigo, TIA versus CVA rule out. 1. Vertigo, acute, rule out TIA vs CVA, present on admission -suspect this is most likely benign proximal positional vertigo, consider Diff diagnosis: Vestibular paroxysmia, recurrent vetibulopathy, TIA, CVA, labyrinth ine infarction. -Brain MR scan was negative for acute hemorrhage, infarction, or masses. -echo scheduled for tomorrow -ED consult was [place] neuro stroke -Plavix [address] of the patient's Prasugrel -Continue Lipitor, ASA -Tele monitoring -Pt Consult -[place] maneuvers -diff: benign proximal positional vertigo- recommended pt exercises if appropriate -Orthostats Q shift -Follow up with his housing coordinator, Follow up with PCP if vertigo returns or worsens 2. Hyperlipidemia secondary to ovz-wzsfcop-bfyefsdsf type 2 diabetes, chronic, present on admission -lipid panel and A1c ordered -continue Lipitor, metformin 3. Essential hypertension secondary to coronary artery disease, chronic, present on admission -controlled -continue losartan, carvedilol 4. History VT, with stent placement, chronic, present on admission -managed by [facility] Dr. Lehman -tele medicine 5. Chronic bilateral hip pain, chronic, present on admission -continue trazodone, Flexeril, gabapentin 6. Depression, chronic, present on admission -continue Celexa 7. Erectile dysfunction, secondary to coronary artery disease, chronic, present on admission -hold Viagra 8. Morbid obesity as evidence by BMI of 39.5, acute on chronic, present on admission -dietary consult placed Code status:Full Surrogate decision maker: Daughter oCby Shrestha COVID PCR:Negative COVID vaccination: Unknown DVT/VTE prophylaxis: Lovenox 40 and SCDs Disposition: I have utilized all available immediate resources to obtain, update, or review the patient's current medications. I confirmed that the patient's advanced care plan is present, Code status is documented and/or surrogate decision maker is listed in the patient's medical record. Time Spent With Patient Critical Care time: I spent a total of [] minutes of critical care time on this patient's care today; this time is exclusive of procedural time. Quality VTE Deep Vein Thrombosis/Pulmonary Embolism Present on Admission: No
[2021-07-15] MEDS: ACETAMINOPHEN 325 MG TABLET 650 MG PO (00:55)
[2021-07-15] MEDS: carvediloL 3.125 MG TABLET PO ×2 (01:21→08:40)
[2021-07-15] MEDS: CYCLOBENZAPRINE 10 MG TABLET PO (01:21)
[2021-07-15 05:38] LABS: NT-proBNP (BNP-Adult 18+) 5370 pg/mL (<125)
[2021-07-15] MEDS: ENOXAPARIN 40 MG/0.4 ML SYRINGE SUBCUT (08:40)
[2021-07-15] MEDS: LOSARTAN 25 MG TABLET 12.5 MG PO (08:40)
[2021-07-15] MEDS: ASPIRIN EC 81 MG TABLET PO (08:40)
[2021-07-15] MEDS: CITALOPRAM 10 MG TABLET 20 MG PO (08:40)
[2021-07-15] MEDS: CLOPIDOGREL 75 MG TABLET PO (08:40)
[2021-07-15] MEDS: METFORMIN HCL 500 MG TABLET PO (08:40)
[2021-07-15] MEDS: MECLIZINE HCL 12.5 MG TABLET 25 MG PO (08:41)
[2021-07-15] MEDS: SODIUM CHLORIDE 0.9% FLUSH 10 ML IV (08:43)
--- NOTE | 2021-07-15 11:02 | PM.DS.1 ---
History of Present Illness History of Present Illness Date Patient Seen: 07/15/21 Time Patient Seen: 11:02 Chief complaint: Dizzy, stumbling, got a stint put in heart 07/06 Narrative: Narayan Shrestha is a 56-year-old male with a history of hypertension, hyperlipidemia, coronary artery disease, history of recent heart attack with stent placement, cme-llcgkln-vhsgntzeu type 2 diabetes who presented to the ED complaining of sudden onset of dizziness that started this morning when he woke up out of bed.? Patient reports that while getting out of bed walking to the bathroom he had extreme episodes of dizziness denies any loss of consciousness.? Patient reports that he had a cardiac stent placed last week.? He was placed on blood pressure medication and a blood thinner of unknown.? Patient denies any Chest pain, SOB, headache, changes in vision, numbness, tingling, weakness, peripheral edema, abdominal pain, diaphoresis, nausea, vomiting, diarrhea, fever, body aches, sore throat,? congestion, any recent illness injury or trauma otherwise stated. Patient admits while driving over here he became car sick momentarily he had 2 episode of vomiting as result.? Patient states he smoked for 35 years but quit some time ago, does not drink alcohol regularly, does smoke marijuana regularly.? At the time of admit interview patient is resting in bed denies any symptoms at this time including dizziness but notes that if he sat up on the side of the bed his dizziness would reoccur. Patient's vitals upon admit temp 96.8?, BP 149/66, HR 72, R 21, O2 saturation 99% on room air.? Patient has a HGB 11.2, HCT 33.8, potassium 5.3, glucose 133, all other chemistry and liver panels are within normal limits.? Patient's troponin is negative, BNP 2670, patient's brain MRI demonstrated no acute intracranial process, hemorrhage, infarction, or mass.? Patient's CTA of head neck demonstrated right coronary artery 60% stenosis, patient's head CT demonstrated no intracranial acute processes.? Patient's chest x-ray demonstrated mild cardiomyopathy.? Patient's EKG demonstrated normal sinus rhythm with a rate of 67, and T-wave abnormality, no comparison available.? [facility] neuro stroke was consulted regarding patient and recommended admit for observation and risk assessment evaluation.? Patient admitted for TIA versus CVA rule out. Discharge Providers Provider Date of admission: 07/14/21 17:31 Discharge Date: 07/15/21 Primary care physician: Danya Garcia DO Consults: 07/15/21 01:57 Consult to Physical Therapy Evaluate & Treat Comment: Vertigo-Barnard [place] Bharath Mignon Physician Instructions: Evaluate and Treat 07/15/21 02:08 Consult to Dietitian, Adult Routine Comment: Reason For Exam: BMI 39.5 Discharge provider: Sergio Lucas DO Summary Hospital Course Discharge Diagnosis: 1. Vertigo, acute, rule out TIA vs CVA, present on admission 2. Hyperlipidemia secondary to tuf-iudonut-vhnvbqyto type 2 diabetes, chronic, present on admission 3. Essential hypertension secondary to coronary artery disease, chronic, present on admission 4. History IL, with stent placement, chronic, present on admission 5. Chronic bilateral hip pain, chronic, present on admission 6. Depression, chronic, present on admission 7. Erectile dysfunction, secondary to coronary artery disease, chronic, present on admission 8. Morbid obesity as evidence by BMI of 39.5, acute on chronic, present on admission Hospital Course: Narayan Shrestha is a 56-year-old male with a history of hypertension, hyperlipidemia, morbidly obesity, coronary artery disease, history of recent heart attack with stent placement, lhj-rumxyoa-wziqxzfus type 2 diabetes who presented to the ED complaining of sudden onset of dizziness when he woke up out of bed, denies any loss of consciousness.? He also had a recent heart attack with stent placement 1 week prior. He was admitted for evaluation of a possible CVA or TIA. The following morning, his symptoms were improving, and he had and negative MRI which did not show evidence of any acute ischemia. Given positional nature, as well as negative orthostatic blood pressures, I suspect that this is likely related to BPPV, although there is a possibility that it is due to some mild relative transient hypotension given his recent initiation blood pressure medications as result of his IL. he was able to ambulate without supportive assistance at the time of discharge, and his symptoms as noted previously had improved. The patient was discharged home with a prescription for meclizine as needed and instructions to follow-up with his primary care doctor and certified real estate appraiser as previously scheduled. Exam Vital Signs (past 8 hours): - 07/15/21 04:56 07/15/21 07:54 07/15/21 11:02 Pulse Rate 67 Respiratory Rate 18 Pulse Oximetry 97 96 97 Oxygen Delivery Method Room Air Oxygen Flow Rate 0 Narrative Exam Narrative: General:? Patient is a well-developed, well-nourished male in no distress at this time. HEENT:? Normocephalic, atraumatic, extraocular muscles intact, oral pharynx is clear and mucous membranes are moist.? Neck is supple and symmetric, trachea is midline, no adenopathy, no thyroid enlargement, nontender, no masses palpated.? Negative for JVD Lungs:? Auscultation of all lung santos are clear without adventitious sounds, wheezes, rhonchi, or rales. Cardio:? S1 & S2 with regular rate and rhythm without murmur, rubs, or gallops, no carotid bruit, no cardiac pulsations present. Abdomen:? Soft nontender, negative for organomegaly, or masses.? Bowel sounds are present in all 4 quadrants without guarding or rebound, no CVA tenderness. Neuro:? Alert and orientated x3, strength is +5/5 in all extremities, sensation to touch intact, no gross deficits noted of cranial nerves. Objective Labs Result Diagrams: 07/14/21 13:25 07/14/21 13:25 Labs: Laboratory Results - last 24 hr 07/14/21 07/14/21 07/14/21 13:25 13:25 13:25 WBC 8.2 RBC 3.88 L Hgb 11.2 L Hct 33.8 L MCV 87.1 MCH 28.9 MCHC 33.1 RDW 14.6 Plt Count 273 Neut % (Auto) 73.2 Lymph % (Auto) 19.4 L [place] % (Auto) 5.1 Eos % (Auto) 1.7 L Baso % (Auto) 0.6 Neut # (Auto) 6000 Lymph # (Auto) 1600 [place] # (Auto) 400 Eos # (Auto) 100 Baso # (Auto) 100 PT 10.6 INR 1.0 APTT 38 H Sodium 139 Potassium 5.3 H Chloride 103 Carbon Dioxide 29 BUN 15 Creatinine 1.05 Estimated GFR > 60.0 BUN/Creatinine Ratio 14.3 Glucose 133 H Hemoglobin A1c Calcium 10.2 Magnesium 1.7 Total Bilirubin 0.3 AST 31 ALT 36 Alkaline Phosphatase 124 Total Creatine Kinase 92 CK-MB (CK-2) TNP CK-MB (CK-2) Rel Index TNP Troponin I 0.014 NT-Pro-B Natriuret Pep Total Protein 8.2 Albumin 4.5 Globulin 3.7 Albumin/Globulin Ratio 1.2 Triglycerides Cholesterol LDL Cholesterol, Calc HDL Cholesterol Lipase 171 SARS-CoV-2 (PCR) 07/14/21 07/14/21 07/14/21 13:25 13:25 13:25 WBC RBC Hgb Hct MCV MCH MCHC RDW Plt Count Neut % (Auto) Lymph % (Auto) [place] % (Auto) Eos % (Auto) Baso % (Auto) Neut # (Auto) Lymph # (Auto) [place] # (Auto) Eos # (Auto) Baso # (Auto) PT INR APTT Sodium Potassium Chloride Carbon Dioxide BUN Creatinine Estimated GFR BUN/Creatinine Ratio Glucose Hemoglobin A1c 5.7 Calcium Magnesium Total Bilirubin AST ALT Alkaline Phosphatase Total Creatine Kinase CK-MB (CK-2) CK-MB (CK-2) Rel Index Troponin I NT-Pro-B Natriuret Pep 2670 H Total Protein Albumin Globulin Albumin/Globulin Ratio Triglycerides 166 H Cholesterol 180 LDL Cholesterol, Calc 92 HDL Cholesterol 55 Lipase SARS-CoV-2 (PCR) 07/14/21 07/15/21 17:46 05:04 WBC RBC Hgb Hct MCV MCH MCHC RDW Plt Count Neut % (Auto) Lymph % (Auto) [place] % (Auto) Eos % (Auto) Baso % (Auto) Neut # (Auto) Lymph # (Auto) [place] # (Auto) Eos # (Auto) Baso # (Auto) PT INR APTT Sodium Potassium Chloride Carbon Dioxide BUN Creatinine Estimated GFR BUN/Creatinine Ratio Glucose Hemoglobin A1c Calcium Magnesium Total Bilirubin AST ALT Alkaline Phosphatase Total Creatine Kinase CK-MB (CK-2) CK-MB (CK-2) Rel Index Troponin I NT-Pro-B Natriuret Pep 5370 H Total Protein Albumin Globulin Albumin/Globulin Ratio Triglycerides Cholesterol LDL Cholesterol, Calc HDL Cholesterol Lipase SARS-CoV-2 (PCR) Negative [facility] Medical History (Updated 07/15/21 @ 01:43 by Jaimee Adler LEAD BURNER APPRENTICE-) Coronary artery disease Essential hypertension History of IL (myocardial infarction) History of placement of stent in anterior descending branch of left coronary artery Hyperlipidemia associated with type 2 diabetes mellitus Morbid obesity Non-insulin dependent type 2 diabetes mellitus Surgical History (Updated 07/15/21 @ 01:43 by MARA Arnett) History of bilateral hip arthroplasty Family History (Updated 07/15/21 @ 01:45 by MARA Arnett) Mother Victim of MVA as unrestrained [employer] company flatbed driver Father due to natural causes Social History household members: none Smoking Status: Former smoker alcohol intake: former Discharge Plan Discharge Plan Patient Disposition: Home Provider Discharge Comment: You were admitted to the hospital with dizziness. This may be due to your blood pressure medications recently added but your BP is good now and your symptoms are improved so no medication changes are needed. Your MRI was negative for any possible stroke. Discharge orders & Medications Prescriptions: New meclizine 25 mg tablet 25 mg PO BID PRN (Reason: dizziness) 7 Days Qty: 14 0RF Continued cyclobenzaprine 10 mg tablet 10 mg PO BEDTIME 0RF metformin 500 mg tablet 500 mg PO BID 0RF atorvastatin 80 mg tablet 80 mg PO DAILY 0RF aspirin 81 mg tablet,delayed release (DR/EC) 81 mg PO BEDTIME 0RF sildenafil 100 mg tablet 100 mg PO PRN PRN (Reason: for sexual intercourse) 0RF carvedilol 3.125 mg tablet 3.125 mg PO BID 0RF Label Comments: take 1 tablet by mouth every morning and evening with meals citalopram [Celexa] 20 mg tablet 20 mg PO DAILY 0RF trazodone 100 mg tablet 100 mg PO BEDTIME 0RF losartan 25 mg tablet 12.5 mg PO DAILY 0RF Label Comments: take 1/2 tablet by mouth once daily ergocalciferol (vitamin D2) 1,250 mcg (50,000 unit) capsule 1,250 mcg PO WEEKLY 0RF zinc sulfate 50 mg zinc (220 mg) Capsule 50 mg PO BEDTIME 0RF prasugrel 10 mg tablet 10 mg PO DAILY 0RF Label Comments: take 1 tablet by mouth once daily SWALLOW WHOLE, DO NOBREAK OR CHEW Follow up/Referrals: Danya Garcia DO [Primary Care Provider] - Diet/Activity/Treatments Diet: Diet as Tolerated Activity: As tolerated Visit Report/Discharge Packet Instructions: Transient Ischemic Attack, How to Prevent Falls, DI for Dizziness-Nonvertigo Discharge Data Primary Care Provider: Danya Garcia Attending Provider: Horesh,Levar Quality VTE Deep Vein Thrombosis/Pulmonary Embolism Present on Admission: No
--- NOTE | 2021-07-15 11:40 | PT.IIE ---
Medical History (Last Updated 07/15/21 @ 01:43 by Jaimee Adler, [facility]) Coronary artery disease Essential hypertension History of [place] (myocardial infarction) History of placement of stent in anterior descending branch of left coronary artery Hyperlipidemia associated with type 2 diabetes mellitus Morbid obesity Non-insulin dependent type 2 diabetes mellitus Physical Therapy Inpatient Evaluation/Re-Eval M1 PT/OT-IP Prior Functional Status Start: 07/15/21 13:14 Freq: NEEDED Status: Active Protocol: Document 07/15/21 11:40 AB (Rec: 07/15/21 13:27 AB [facility] Medical Review Prior Functional Status Medical History Reviewed Yes Communication able to make needs known Mobility and Gait pt stated that he is independent with all mobilities and ambulation without AD Social History Household Members none Living Arrangements Mobile home Number of Floors (Floors) One Floor Number of Stairs To Enter/Railing? 2 steps L rail ascending Home Environment Standard Height Toilet,Tub/ Shower Doors Home Equipment Hand Held Shower,Grab Bars In Shower M2 PT-IP Current Condition Start: 07/15/21 13:14 Freq: NEEDED Status: Active Protocol: Document 07/15/21 11:40 AB (Rec: 07/15/21 13:27 AB [facility] Physical Therapy Current Condition Current Condition Evaluation Date 07/15/21 Treatment Diagnosis dizziness; difficulty in walking Onset Date 07/14/21 M3 PT-IP Subjective Start: 07/15/21 13:14 Freq: NEEDED Status: Active Protocol: Document 07/15/21 11:40 AB (Rec: 07/15/21 13:27 [facility] Subjective Physical Therapy Visit Type Type Initial Evaluation Visit Start Time 11:40 Visit Stop Time 12:00 Total Visit Minutes 20 Number of ANIMAL CYTOLOGIST Visits 0 Physical Therapy Visit Comments Patient Comments agreeable to do PT M4 PT-IP Mobility and Gait Start: 07/15/21 13:14 Freq: NEEDED Status: Active Protocol: Document 07/15/21 11:40 AB (Rec: 07/15/21 13:27 [facility] PT-Bed Mobility Assessment Supine to Sit Supine to Sit Independent Sit to Supine Sit to Supine Independent PT-Transfer Assessment Sit to and From Stand Sit to and from Stand Independent Equipment Transfer Assistive Device None Orthotic/Prosthetic Devices or Brace: No Comments Mobility Comments pt supine in bed and agreed to do PT. stated that dizziness is better but still has a little. stated that dizziness is more like lightheadedness and not a spinning sensation. pt rotated head R<>L without aggravation of symptoms and no nystagmus. PT eval received to do Paradox Halpike maneuaver but pt is not appropriate for vestibular PT as pt's dizziness is not BPPV. PT stepped out for a few minutes and when PT went back to see pt, pt got dressed by himself and up in the room moving by himself. able to safely move in room. agreed to do stair climbing with PT. ambulated in the hallway without AD ~ 300 ft. (+) LOB x 3. cued pt to slow down. pt stated that he still has slight dizziness but will be fine to go home. educated on safety, slow down and to f/u with PCP. pt agreed. pt completed up/down 3 steps without use of rails SBA. repeated x 2 sets. pt ambulated back to his room without AD. continues to have unsteady gait with slight LOB but able to catch himself. Left pt in room. Gait Assessment Gait Gait Assistance Required: Standby Assistance,Contact Guard Assist Distance (Feet) 300 Able to Maintain Weight Bearing Status Yes During Gait Assistive Devices Assistive Device None Orthotic/Prosthetic Devices or Brace: No Gait Deviations General Gait Pattern Ataxic Stair Climbing Assessment Evaluation Level of Assist On Stairs Standby Assistance Devices Stair Climbing Assistive Devices None Technique/Endurance Stair Climbing Direction Ascend and Descend Stair Climbing Technique Step Over Step Number of Steps Climbed 3 Query Text: Stair Climbing Set # Repetitions (reps) 2 PT-Balance Assessment Sitting Balance and Reactions Static Sitting Balance Ability Normal Dynamic Sitting Balance Ability Normal Standing Balance and Reactions Static Standing Balance Ability Good Dynamic Standing Balance Ability Fair Device Used without AD M5 PT-IP Objective Assessments Start: 07/15/21 13:14 Freq: NEEDED Status: Active Protocol: Document 07/15/21 11:40 AB (Rec: 07/15/21 13:27 AB [id number]) Orientation Orientation/Cognition Level of Alertness Alert Orientation Name,Age,Birthday,Month,Date, Year,Day of Week,Place, Situation Language Function Ability No Deficits Noted Safety Awareness Decreased Safety Awareness Memory Description No Deficits Noted Gross Range of Motion Lower Extremity ROM Assessment Within Functional Limits Strength Lower Extremity Strength Assessment Within Functional Limits Muscle Tone Muscle Tone WNL Yes M6 PT-IP Treatment Start: 07/15/21 13:14 Freq: NEEDED Status: Active Protocol: Document 07/15/21 11:40 AB (Rec: 07/15/21 13:27 AB [id number]) Physical Therapy Treatment Education Education Provided Safety M7 PT-IP Assessment and Plan Start: 07/15/21 13:14 Freq: NEEDED Status: Active Protocol: Document 07/15/21 11:40 AB (Rec: 07/15/21 13:27 AB [email or web address]) PT Summary Assessment and Plan Potential Rehabilitation Potential Fair Status of Condition at Evaluation Stable Summary Impairments Pain,ROM,Strength,Balance, Coordination,Sensation,Tone, Cognition,Bed Mobility, Transfers,Gait,Activity Tolerance Assessment Summary pt requiring SBA to CGA with ambulation without AD and continues to c/o slight dizziness/ lightheadedness without nystagmus noted. pt plans to go home and stated that if needed, he has his neighbor to assist him. Per MD notes, dizziness is due to medication changes. pt just had stent placement done last week. Goals Gait Goal Independent Gait Distance 350 Other Goals up/down 2 steps mod I without rails Days to Meet Goals 3 Frequency of Treatment Frequency Of Treatment Once a Day Treatment Plan Physical Therapy Treatment Plan Gait Training,Therapeutic Exercise,Balance Retraining, Discharge Planning,Hot or Cold Pack,Neuromuscular Re-ed, Coordination Retraining Recommendations To Nursing Amount of Assist Needed Standby Assistance Discharge Recommendations PT Discharge Recommendations Home with Assistance Transportation Needs at Discharge Private Vehicle
--- NOTE | 2021-07-15 12:47 | PC.NURSE ---
Day shift: Paperwork signed and all questions answered. Pt has all personal belongings. New script sent to Pt's pharmacy electronic. Dora to cat in WC by this data analyst report writer. Pt's friend is driving him home. Pt ambulated in halls w/ PT w/o incident. Left unit at approx 1245.
--- NOTE | 2021-07-15 13:54 | CM.DANOTE ---
Patient is a 56 yo male who was admitted on 07/14/21 for Dizzy, stumbling. Pt has [employer] for insurance and his PCP is Danya Garcia at the [facility]. EMR was reviewed. Per , pt with hx of recent heart attack and stent placement and smokes THC regularly and was admitted for TIA vs CVA r/o. Echo ordered and per PT recommending safe d/c home when stable. SW met bedside with pt and explained role and pt confirms that he lives in [place] in a mobile home alone and has local supportive Dtr and friends. Pt denies any formal DPOA but states informally it would be his Dtr Crystal. Pt denies any hx of HH or SNF even though in the last 6 months pt has had kidney stone, hip surgery, heart attack, and now this admission to the hospital. Pt drives and is independent with ADL's at baseline and states he is hopeful to d/c home today and states his friend can provide transport. Pt does not anticipate any needs. Per RN, d/c orders placed now that Echo results are normal and pt given d/c instructions and friend provided transport home with no concerns. Plan: Patient discharged home around lunchtime via friend POV and no further SW needs at this time. SYDNIE Villalta Discharge Planning/Care Management CM Discharge Assessment Start: 07/15/21 13:51 Freq: Status: Active Protocol: Document 07/15/21 13:51 BF (Rec: 07/15/21 13:54 BF [id number]) Discharge Planning Assessment Assigned Sharepoint Application Architect SYDNIE Guajardo DPOA/Assigned Designee Name none, informally Dtr Crystal Contact Information [phone] Advance Directives? No Advance Directives on File No History Provided By Patient,Medical Record Has Patient been admitted in last 30 No days? Comment Recently at [facility] for heart attack and stent Prior Living Arrangements Mobile home Household Members none Type of transporation used prior to Drives own vehicle admit Independent with ADL's Yes Is patient alert and oriented? Yes Caregiver for Another No Patient/Family Preference OP PT Therapy Barriers to Discharge No Discharge Plan Home Transportation Arrangement Friend or Dtr to provide transport home Referrals Initiated None needed Whiteboard Updated in Patient Room with Yes name and ext. # of Sharepoint Application Architect Review Status In Process Please Provide Date Initial DC 07/15/21 Assessment Was Performed Next Review Type Continued Stay Review
== END 2021-07-15 12:52 | disposition home or self-care (01) ==
LOC: ED 17:30 → AC 18:43
PROVIDERS: Emergency Medicine; Nurse Practitioner Family; Admitting Provider Internal Medicine; Emergency Provider Physician Assistant; PCP Family Medicine; Referring Provider Physician Assistant; Visit Provider Internal Medicine
DX: R42 Dizziness and giddiness (principal); I10 Essential (primary) hypertension; I25.10 Atherosclerotic heart disease of native coronary artery without angina pectoris; E11.69 Type 2 diabetes mellitus with other specified complication; E66.01 Morbid (severe) obesity due to excess calories; E78.49 Other hyperlipidemia; Z79.84 Long term (current) use of oral hypoglycemic drugs; I25.2 Old myocardial infarction; Z95.818 Presence of other cardiac implants and grafts; Z68.39 Body mass index [BMI] 39.0-39.9, adult; Z20.822 Contact with and (suspected) exposure to COVID-19; F32.9 Major depressive disorder, single episode, unspecified; M25.552 Pain in left hip; M25.551 Pain in right hip; N52.9 Male erectile dysfunction, unspecified
CPT/HCPCS: 36415; 70450; 70496; 70498; 70551; 71045; 80053; 80061; 82550; 82962; 83036; 83690; 83735; 83880; 84484; 85025; 85610; 85730; 87635; 93005; 93010; 94760; 96372; 97161; 99284; C9803; G0378; J1650; Q9967

== ENCOUNTER 2022-07-30 08:20 | Emergency (ER) | payer OTHER, SELFPAY ==
[2021-07-14 18:45] VITALS: BMI 39.5
[2022-07-30 08:35] VITALS: BP 193/88; PULSE 81; RESP 19; TEMP 36.8; O2SAT 100; BMI 42.5
--- NOTE | 2022-07-30 09:15 | DI.MRI.S_ITS ---
PROCEDURE: MR THORACIC SPINE WO CON INDICATIONS: Right-sided back pain TECHNIQUE: Noncontrast sagittal T1 spine echo and T2 fast spin echo, sagittal STIR, and T2 fast spin echo through the thoracic spine. COMPARISON: None. FINDINGS: Image quality: Excellent. Alignment and Curvature: There is normal bony alignment. Bone Marrow: Marrow is of normal overall signal. No acute vertebral body compression fractures. Spinal Cord: Visualized spinal cord is normal in size and signal. Paraspinous Soft Tissues: No paravertebral masses. Miscellaneous: On axial images, central canal and foramina appear widely patent at all scanned levels. IMPRESSION: Normal MRI the thoracic spine Approved by: Luis Moya M.D. on 07/30/2022 at 10:24
--- NOTE | 2022-07-30 09:16 | ED.BACK ---
HPI - Back Pain/Injury General Chief Complaint: Back Pain/Injury Stated Complaint: RT side pain T-14 Time Seen by Provider: 07/30/22 08:59 Source: patient History of Present Illness HPI Narrative: Patient here with a friend. Complaints of right flank/thoracic pain that radiates anteriorly to the level of the umbilicus. Denies denies any recent illness. Ongoing past 2 or 3 weeks. No known injury. No prior history of this pain. History of kidney stone but was seen by [facility] provider and had renal stone workup including blood work as well as urine as well as CT. This was done July 23, 2022. Patient report brought with him. It does show [id number] degenerative spurring of spine appreciated more no bloody thoracic spine with flowing anterolateral osteophytes. Suggestive of diffuse idiopathic skeletal hyperostosis. And occasional Schmorl's node is seen in the lower thoracic spine. There are 6 lumbar type vertebral bodies with lower most demonstrating small pars defects with slight bony overgrowth in the right side. Patient denies any leg pain no groin pain no saddle paresthesia no bowel or bladder incontinence or retention. No leg or feet numbness tingling or weakness. Patient states it is positional. Lying on the left side makes it worse. Standing upright seems alleviate. Patient does have moderate obesity. Distended pannus. Related Data Home Medications Medication Instructions Recorded Confirmed aspirin 81 mg tablet,delayed 81 mg PO BEDTIME 07/14/21 07/14/21 release atorvastatin 80 mg tablet 80 mg PO DAILY 07/14/21 07/14/21 carvedilol 3.125 mg tablet 3.125 mg PO BID 07/14/21 07/14/21 citalopram 20 mg tablet (Celexa) 20 mg PO DAILY 07/14/21 07/14/21 cyclobenzaprine 10 mg tablet 10 mg PO BEDTIME 07/14/21 07/14/21 ergocalciferol (vitamin D2) 1,250 1,250 mcg PO WEEKLY 07/14/21 07/14/21 mcg (50,000 unit) capsule losartan 25 mg tablet 12.5 mg PO DAILY 07/14/21 07/14/21 metformin 500 mg tablet 500 mg PO BID 07/14/21 07/14/21 prasugrel 10 mg tablet 10 mg PO DAILY 02/08/22 02/08/22 sildenafil 100 mg tablet 100 mg PO PRN PRN for sexual 07/14/21 07/14/21 intercourse trazodone 100 mg tablet 100 mg PO BEDTIME 07/14/21 07/14/21 zinc sulfate 50 mg zinc (220 mg) 50 mg PO BEDTIME 07/14/21 07/14/21 capsule Allergies Allergy/AdvReac Type Severity Reaction Status Date / Time No Known Drug Allergies Allergy Verified 07/30/22 08:45 Review of Systems Review of Systems Narrative: GENERAL: negative chills, fatigue, malaise, fever, sweats. HEENT: negative sinus pain, ear pain, sore throat RESPIRATORY: negative dyspnea, cough CARDIOVASCULAR: negative chest pain, palpitations GASTROINTESTINAL: negative nausea, vomiting, abdominal pain : negative dysuria, frequency, hematuria MUSCULOSKELETAL: Positive back/muscle or bony pain SKIN: negative rash, skin lesions NEUROLOGIC: negative weakness, numbness ROS Unobtainable: All systems reviewed & are unremarkable except as noted in HPI and below Patient History Medical History Coronary artery disease Essential hypertension History of [place] (myocardial infarction) History of placement of stent in anterior descending branch of left coronary artery Hyperlipidemia associated with type 2 diabetes mellitus Morbid obesity Non-insulin dependent type 2 diabetes mellitus Surgical History History of bilateral hip arthroplasty Family History Mother 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 EYES: Pupils equal round ENT: Mucous membranes moist. NECK: Trachea midline. CARDIOVASCULAR: Regular rate and rhythm without murmurs RESPIRATORY: Clear to auscultation. Breath sounds equal bilaterally. No wheezes, rales, or rhonchi. GASTROINTESTINAL: Abdomen soft, non-tender EXTREMITIES: No gross deformities. BACK: No flank tenderness. No midline tenderness or step-off. No CVA tenderness. No pain with range of motion. Patient is very positional. Mostly with lying on his left side NEURO: AOx4. SKIN: Warm and dry PSYCH: Not anxious, is cooperative Initial Vital Signs Initial Vital Signs: Vital Signs Temperature 98.3 F 07/30/22 08:35 Pulse Rate 81 07/30/22 08:35 Respiratory Rate 19 07/30/22 08:35 Blood Pressure 193/88 H 07/30/22 08:35 Pulse Oximetry 100 07/30/22 08:35 Oxygen Delivery Method 07/30/22 08:35 Course Orders Ordered: ED Orders 07/30/22 09:15 MR thoracic spine wo con Stat Vital Signs Vital signs: Vital Signs - 8 hr 07/30/22 08:35 Temperature 98.3 F Pulse Rate 81 Respiratory Rate 19 Blood Pressure 193/88 H Pulse Oximetry 100 Oxygen Delivery Method Room Air MDM - Back Pain/Injury Imaging Data MRI thoracic spine: Radiologist's Impression: [address] [address] Magnetic Resonance Report Signed Patient: Narayan Shrestha MR#: [id number] : 1965 Acct:[id number] Age/Sex: 57 / M Date of Service: 07/30/22 Loc: ED Accession Number: [id number] ?? Procedure: MR thoracic spine wo con Ordering Provider: Konrad Bruner MD PROCEDURE:? MR THORACIC SPINE WO CON ? INDICATIONS:? Right-sided back pain ? TECHNIQUE:? Noncontrast sagittal T1 spine echo and T2 fast spin echo, sagittal STIR, and T2 fast spin echo through the thoracic spine.? ? COMPARISON:? None. ? FINDINGS:? Image quality:? Excellent.? ? Alignment and Curvature:? There is normal bony alignment.? ? Bone Marrow:? Marrow is of normal overall signal.? No acute vertebral body compression fractures.? ? Spinal Cord:? Visualized spinal cord is normal in size and signal.? ? Paraspinous Soft Tissues:? No paravertebral masses.? ? Miscellaneous:? On axial images, central canal and foramina appear widely patent at all scanned levels.? ? IMPRESSION:? Normal MRI the thoracic spine ? ? ? Approved by: Luis Moya M.D. on 07/30/2022 at 10:24? MDM Narrative Medical decision making narrative: Patient here with a friend. Complaints of right flank/thoracic pain that radiates anteriorly to the level of the umbilicus. Denies denies any recent illness. Ongoing past 2 or 3 weeks. No known injury. No prior history of this pain. History of kidney stone but was seen by [place] [facility] provider and had renal stone workup including blood work as well as urine as well as CT. This was done July 23, 2022. Patient report brought with him. It does show [id number] degenerative spurring of spine appreciated more no bloody thoracic spine with flowing anterolateral osteophytes. Suggestive of diffuse idiopathic skeletal hyperostosis. And occasional Schmorl's node is seen in the lower thoracic spine. There are 6 lumbar type vertebral bodies with lower most demonstrating small pars defects with slight bony overgrowth in the right side. Patient denies any leg pain no groin pain no saddle paresthesia no bowel or bladder incontinence or retention. No leg or feet numbness tingling or weakness. Patient states it is positional. Lying on the left side makes it worse. Standing upright seems alleviate. Patient does have moderate obesity. Distended pannus. After history and exam MRI thoracic spine ordered. At this time no blood work indicated. Patient just had blood work and CT scan imaging done in the last week MDM CC: Right side back pain Complicating co-morbidities: Cardiac history renal stone history Data collected from: Patient Medical records reviewed: Records from primary care provider for visit of same complaint Differential considered: Includes but not limited to thoracic radiculopathy shingles musculoskeletal strain Exam documented above, pertinent findings include: Reproducible right side back pain Imaging studies independently reviewed: [address] [address] Magnetic Resonance Report Signed Patient: Narayan Shrestha MR#: [id number] : 1965 Acct:[id number] Age/Sex: 57 / M Date of Service: 07/30/22 Loc: ED Accession Number: [id number] ?? Procedure: MR thoracic spine wo con Ordering Provider: Konrad Bruner MD PROCEDURE:? MR THORACIC SPINE WO CON ? INDICATIONS:? Right-sided back pain ? TECHNIQUE:? Noncontrast sagittal T1 spine echo and T2 fast spin echo, sagittal STIR, and T2 fast spin echo through the thoracic spine.? ? COMPARISON:? None. ? FINDINGS:? Image quality:? Excellent.? ? Alignment and Curvature:? There is normal bony alignment.? ? Bone Marrow:? Marrow is of normal overall signal.? No acute vertebral body compression fractures.? ? Spinal Cord:? Visualized spinal cord is normal in size and signal.? ? Paraspinous Soft Tissues:? No paravertebral masses.? ? Miscellaneous:? On axial images, central canal and foramina appear widely patent at all scanned levels.? ? IMPRESSION:? Normal MRI the thoracic spine ? ? ? Approved by: Luis Moya M.D. on 07/30/2022 at 10:24? Treatments: At this time no changes in medications indicated. Patient will need follow up for PT and ortho spine referral. I did give patient referral. Reviewed MRI results with patient however reading impression at this time read as normal. It will be reviewed by ortho spine if he gets referral by his primary care Re-evaluations: Reviewed results with patient. He does agree with follow up with primary care for PT and ortho spine referral. He does have medications at home and understands this will take time to improve. Return precautions reviewed with him. No neuro deficits. Discussion: Appropriate for discharge home. Exam and imaging otherwise reassuring. Referral for ortho spine given. Patient will need PT referral by primary care as well. At this time clinically likely thoracic radiculopathy. It is reproducible. Clinically not intra-abdominal or vascular source. Return precautions reviewed with him. He desires discharge home. Diagnosis: Thoracic back pain Discharge Plan Departure Patient Disposition: Home Clinical Impression: Thoracic radiculopathy Instructions: DI for Thoracic Back Pain Activity Restrictions/Additional Instructions: See family doctor for re-evaluation and for referral to physical therapy. Provider referral to ortho spine has been given to you for local ortho spine provider. Please call office to make appointment. Continue home medications. Return if worse if any questions or concerns. Prescriptions: No Action cyclobenzaprine 10 mg tablet 10 mg PO BEDTIME metformin 500 mg tablet 500 mg PO BID atorvastatin 80 mg tablet 80 mg PO DAILY aspirin 81 mg tablet,delayed release (DR/EC) 81 mg PO BEDTIME sildenafil 100 mg tablet 100 mg PO PRN PRN (Reason: for sexual intercourse) carvedilol 3.125 mg tablet 3.125 mg PO BID Label Comments: take 1 tablet by mouth every morning and evening with meals citalopram [Celexa] 20 mg tablet 20 mg PO DAILY trazodone 100 mg tablet 100 mg PO BEDTIME losartan 25 mg tablet 12.5 mg PO DAILY Label Comments: take 1/2 tablet by mouth once daily ergocalciferol (vitamin D2) 1,250 mcg (50,000 unit) capsule 1,250 mcg PO WEEKLY zinc sulfate 50 mg zinc (220 mg) Capsule 50 mg PO BEDTIME prasugrel 10 mg tablet 10 mg PO DAILY Label Comments: take 1 tablet by mouth once daily SWALLOW WHOLE, DO NOBREAK OR CHEW Referrals: Km Ochoa MD [Physician] - Danya Garcia DO [Primary Care Provider] - Stand Alone Forms: Patient Portal/API
[2022-07-30 11:55] VITALS: BP 174/77; PULSE 62; O2SAT 99
== END 2022-07-30 11:59 | disposition home or self-care (01) ==
PROVIDERS: Emergency Provider Emergency Medicine; PCP Family Medicine
DX: M54.14 Radiculopathy, thoracic region (principal); Z79.899 Other long term (current) drug therapy
CPT/HCPCS: 72146; 99283